=== PATIENT | male | born 1970 | race Caucasian/White ===

== ENCOUNTER 2020-10-22 13:31 | Outpatient (CLI) | payer OTHER | END 2020-10-22 13:32 | disposition home or self-care (01) | LOC: TBSIIMAG 13:31 | PROVIDERS: ATTEND Physician Assistant | DX: M47.12 Other spondylosis with myelopathy, cervical region (principal); M79.89 Other specified soft tissue disorders; Z98.1 Arthrodesis status | CPT/HCPCS: 72040 ==